=== PATIENT | female | born 1990 | race Two or more races ===

== ENCOUNTER 2017-01-04 16:27 | Inpatient (IN) | payer BC, SELFPAY ==
[~2017-01-04 16:27] MED LIST: IBUPROFEN800 M1 PO; PRENATAL VITAM1 EA11; PRENATAL VITAM1 EAC1 PO
[2017-01-04] MEDS ORDERED: COLACE100 M1 PO (17:13)
[2017-01-05 10:43] LABS: BASO % 0.2 % (0-2); EOS % 0.2 % (0-7); HCT-HEMATOCRIT 36.8 % (34.0-49.0); HGB-HEMOGLOBIN 12.1 gm/dl (12.0-15.5); IMMATURE GRANULOCYTES ABSOLUTE 0.15 tho/cmm (0-0.03); IMMATURE GRANULOCYTES PERCENT 0.8 % (0-0.3); LYMPH % 10.8 % (20-45); MCH (MEAN CORPUSCULAR HGB) 29.4 pg (28.0-32.0); MCHC MEAN CORPUSCULAR HGB CONC 32.9 % (32.0-36.0); MCV (MEAN CELL VOLUME) 89.5 fl (82.0-96.0); MEAN PLATELET VOLUME 10.8 cmc (9.4-12.4); MONO % 6.4 % (0-12); MONOCYTE ABSOLUTE COUNT 1.2 tho/cmm (0.0-1.2); NEUTROPHIL ABSOLUTE COUNT 14.8 tho/cmm (1.6-8.0); NEUTROPHIL-AUTOMATED 14.8 tho/cmm (1.6-8.0); NEUTROPHILS % 81.6 % (40-80); PLATELET COUNT 172 tho/cmm (150-450); RED BLOOD COUNT 4.11 mil/cmm (4.00-5.20); RED CELL DISTRIBUTION WIDTH 13.4 % (12.4-16.4); WHITE BLOOD COUNT 18.1 tho/cmm (4.0-10.0)
[2017-01-05] MEDS ORDERED: IBUPROFEN800 M1 PO (16:25)
== END 2017-01-05 21:05 | DRG 775 ==
LOC: LDR 16:27 → OBGE 22:58
PROVIDERS: ADMIT Advanced Practice Midwife
PROC: 10E0XZZ Delivery of Products of Conception, External Approach (ICD-10-PCS; principal; 2017-01-04)
DX: O77.0 Labor and delivery complicated by meconium in amniotic fluid (principal); O32.2XX0 Maternal care for transverse and oblique lie, not applicable or unspecified; Z37.0 Single live birth; Z3A.40 40 weeks gestation of pregnancy
CPT/HCPCS: J2210; J2590